=== PATIENT | female | born 1980 | race Caucasian/White ===

== ENCOUNTER 2025-04-07 20:50 | Inpatient (IN) | payer BC, MEDICAID ==
[~2025-04-07] VITALS: Ht 160 cm; Wt 63.5 kg
[2025-04-07 21:14] LABS: MEAN PLATELET VOLUME 8.3 FL (7.4-10.4); RED CELL DISTRIBUTION WIDTH 12.7 % (11.5-14.5)
[2025-04-07 21:27] LABS: CREATININE 0.69 MG/DL (0.40-0.90); TOTAL CARBON DIOXIDE 22.3 MMOL/L (24-32); eGFR > 90 ML/MIN
[2025-04-07 21:28] LABS: APTT 29 SECONDS (22-32); INR 1.0 INR
--- NOTE | 2025-04-07 21:37 | RADIOLOGY REPORT ---
Procedure: CT CT STROKE ALERT [facility] Study Date and Requested Time: 04/07/2025 09:14 PM Common Stroke Alert Comparison: None Dose: CTDI: mGy DLP: mGycm Technique: Multiplanar images obtained through the brain without intravenous contrast. Findings: Normal brain volume and formation. Mild chronic small vessel ischemic changes. No hemorrhages, masses, mass effect, midline shift, herniation. No intra-axial or extra-axial fluid c ollections. Questionable asymmetric hypodensity over the right cerebellum versus artifact. No evidenc e of hydrocephalus. The basal cisterns are patent. The pituitary gland, sella and parasellar regions are unremarkable. The cerebellar tonsils are in nor mal position. The orbits and globes are unremarkable. The paranasal sinuses and mastoids are clear. There are no wo rrisome calvarial lesions. Impression: No evidence of acute intracranial hemorrhage. Questionable asymmetric hypodensity over the right cerebellum versus artifact. MRI be helpful for fur ther evaluation if there is persistent concern for acute infarct. Critical Result: Stroke Alert Findings discussed with Dr. Rm, at 04/07/2025 09:34 PM, and acknowledged receipt and understanding of the findings. ..
--- NOTE | 2025-04-07 22:02 | RADIOLOGY REPORT ---
CHEST RADIOGRAPH Indication: Stroke Alert Technique: Single frontal view of the chest was obtained Comparison: None FINDINGS: Lines and Tubes: None Lungs: No focal consolidation. Pleura: No effusion. No pneumothorax. Cardiomediastinal contours: Unremarkable Bones: No acute osseous abnormality. IMPRESSION: No acute cardiopulmonary disease.
[2025-04-07] MEDS: clopidogrel 300mg tablet PO ONE (23:00)
--- NOTE | 2025-04-07 23:01 | Physician Documentation ---
History of Present Illness ~ Chief Complaint: Stroke Alert Stated Complaint: FACIAL DROOPING Time Seen by MD: 21:34 OK to notify your PCP?: Yes Source: patient, family, RN/MD, RN notes reviewed, old records Mode of Arrival: POV Exam Limitations: no limitations HPI This pleasant female is healthy with no medical complaints. She does have a history of anxiety but does not take medications and does not have a formal diagnosis. Patient states that she woke up and there was an isolated pimple on her right cheek area. She later went to put some mascara over it and noticed that the area felt funny and a bit numb. The day progressed and it was then numb and unable to smile. He was limited to the V to V3 area only. V1 is spared she is able to lift her brow without any difficulty. She denies any headache no fevers chills complications. No recent travel. She takes an IUD but no control ex tobacco smoker she came in today because her symptoms did not resolve. Patient has no history of MS. No vision changes no headache. She is now here for evaluation. Medication Reconciliation Allergies: Coded Allergies: No Known Allergies (Unverified , 02/15/17) Past Medical History Past Medical History: No Pertinent History, Anxiety Past Surgical History: noncontributory Lives In: Home Occupation: employed Review of Systems All Other Systems at this time: Reviewed and Negative Physical Exam Vital Signs: RN Vital Signs have been reviewed: Yes, Temperature: 97.6, Heart Rate: 74, Respiratory Rate: 16, BP: 115/67, Pulse Oximetry: 95, Weight: 63.500 General Appearance General: The patient is well developed, well nourished, nontoxic appearing and is in no acute distress. Skin: [place], warm and dry with no rashes. HEENT: Head was normocephalic and atraumatic. Eyes - pupils equal, round, reactive to light and accommodation. Extraocular movements were intact. Conjunctivae were nonicteric. The mouth and oropharynx were clear with moist mucous membranes. Neck: Supple and nontender. There was no jugular venous distention, lymphadenopathy, thyromegaly or masses. Chest: Clear to auscultation bilaterally without wheezes, rales or rhonchi. No accessory muscle use. No dullness to percussion. Heart: Rate regular and rhythmic. S1, S2. No murmurs. Palpation of the chest wall was normal. No rubs or thrills. Abdomen: Soft, nontender and nondistended. Positive bowel sounds. No guarding or rebound. No hepatosplenomegaly or palpable masses. Extremities: No cyanosis, clubbing or edema. The patient moves all extremities. Pulses were equal and symmetric. Neurologic: V1 full range of motion. Able to lift eyebrows. V2 V3 with facial numbness and facial droop. No tongue deviation no extremity weakness or numbnes s no other neurological findings. Psychologic: The patient was oriented to person, place and time. The patient demonstrated appropriate judgement and insight. Progress Results/Orders Reviewed/noted all lab results: Yes Results/Orders Orders - JUNIOR RM MD Monitor (04/07/25 20:58) 2 Large Bore Ivs (04/07/25 20:58) Electrocardiogram (04/07/25 20:58) Chest,Single View (04/07/25 21:52) Accucheck (04/07/25 20:58) Ct Stroke Alert (04/07/25 20:58) [place] Prov.Neuro Consult (04/07/25 20:58) Completed Orders - JUNIOR RM MD Cbc/Diff (04/07/25 20:58) Chest,Single View (04/07/25 21:52) Ct Stroke Alert (04/07/25 20:58) BMP (04/07/25 20:58) PTT (04/07/25 20:58) Pt Inr (04/07/25 20:58) Vital Signs 04/07/25 04/07/25 04/07/25 21:05 22:16 22:20 Temp 97.6 97.6 Pulse 74 Resp 16 18 16 B/P (MAP) 133/81 115/67 (83) Pulse Ox 97 95 Laboratory Tests Test 04/07/25 21:05 04/07/25 21:07 Glucometer 96 White Blood Count 9.2 Red Blood Count 4.54 Hemoglobin 14.7 Hematocrit 42.0 Mean Corpuscular Volume 92.5 Mean Corpuscular Hemoglobin 32.3 H Mean Corpuscular Hemoglobin Concent 34.9 Red Cell Distribution Width 12.7 Platelet Count 294 Mean Platelet Volume 8.3 Neutrophils (%) (Auto) 57.1 Lymphocytes (%) (Auto) 32.6 Monocytes (%) (Auto) 7.0 Eosinophils (%) (Auto) 2.6 Basophils (%) (Auto) 0.7 Neutrophils # (Auto) 5.2 Lymphocytes # (Auto) 3.0 Monocytes # (Auto) 0.6 Eosinophils # (Auto) 0.2 Basophils # (Auto) 0.1 CBC Comment Prothrombin Time 9.8 INR International Normalized Ratio 1.0 Activated Partial Thromboplast Time 29 Coagulation Comments Sodium Level 138 Potassium Level 3.5 Chloride Level 103 Carbon Dioxide Level 22.3 L Anion Gap 13 Blood Urea Nitrogen 11 Creatinine 0.69 Estimated GFR/1.73 m2 > 90 BUN/Creatinine Ratio 15.9 Glucose Level 93 Calcium Level 9.3 Albumin 4.2 Chemistry Comments Re-Evaluation Re-Evaluation : Re-Evaluation: Improved Progress Patient was seen and examined. Patient is given reassurance. I discussed the case with Neurology. Possible MS was considered since it is so gradual onset seems to be progressing. Patient will need an MRI. Patient received aspirin and Plavix load. Patient however will be admitted and treated for stroke. She has very few risk factors. No recent travel not on any control other than IUD ex tobacco smoking. Patient's laboratory work shows a normal CBC without anemia. Chemistry within normal limits no abnormalities coagulation within normal limits. Cat scan showed a questionable asymmetry in the hypodensity over the right cerebellum versus artifact MRI was recommended. X-ray was also within normal limits. EKG/XRAY/CT/US/VASC/MRI EKG : Intepreting Monitor?: Yes Additional Comment 9:10 p.m. EKG shows normal sinus rhythm heart rate 79, QTC 452, good R-wave progression normal axis intervals. Abdominal X-Ray : Additional Comment CHEST RADIOGRAPH Indication: Stroke Alert Technique: Single frontal view of the chest was obtained Comparison: None FINDINGS: Lines and Tubes: None Lungs: No focal consolidation. Pleura: No effusion. No pneumothorax. Cardiomediastinal contours: Unremarkable Bones: No acute osseous abnormality. IMPRESSION: No acute cardiopulmonary disease. : Interpreted By: radiologist CT: head With Contrast?: No Impression Procedure: [facility] Study Date and Requested Time: 04/07/2025 09:14 PM Common Stroke Alert Comparison: None Dose: CTDI: mGy DLP: mGycm Technique: Multiplanar images obtained through the brain without intravenous contrast. Findings: Normal brain volume and formation. Mild chronic small vessel ischemic changes. No hemorrhages, masses, mass effect, midline shift, herniation. No intra-axial o r extra-axial fluid collections. Questionable asymmetric hypodensity over the right cerebellum versus artifact. No evidence of hydrocephalus. The basal cisterns are patent. The pituitary gland, sella and parasellar regions are unremarkable. The cerebellar tonsils are in normal position. The orbits and globes are unremarkable. The paranasal sinuses and mastoids are clear. There are no worrisome calvarial lesions. Impression: No evidence of acute intracranial hemorrhage. Questionable asymmetric hypodensity over the right cerebellum versus artifact. MRI be helpful for further evaluation if there is persistent concern for acute i nfarct. Critical Result: Stroke Alert Findings discussed with Dr. Rm, at 04/07/2025 09:34 PM, and acknowledged receipt and understanding of the findings. .. Medical Decision Making Additional info obtained from: old records Differential Dx:Considerations: Include: Willson's Palsey, CVA, Delirium tremens, DKA, Drug overdose, Electrolyte imbalance, Encephalopathy, Hypoxemia, Hypoglycem ia, Mass lesion, Respiratory failure, Subarachnoid Hemorrhage, TIA, Other Departure Admitted to Inpatient Unit: yes, to hospitalist Admission Level of Care: Neuro Impression: Primary Impression: Cerebral infarction Qualified Codes: I63.9 - Cerebral infarction, unspecified Condition: Guarded Referrals: NO PRIMARY CARE PROVIDER (PCP) Education Educated: Patient, Family Educated regarding: diagnosis, treatment, need for follow up, other Critical Care Note Total Time (mins): 33 Critical Care Note The very real possibility of a deterioration of this patient's condition required the highest level of my preparedness for sudden, emergent intervention. I provided critical care services, which included medication orders, frequent reevaluations of the patient's condition and response to treatment, ordering and reviewing test results, and discussing the case with various consultants. Excludes time spent performing separately billable procedures. The critical care time associated with the care of the patient was. 33 minutes Signature Scribe Signature: x Attestation: JUNIOR Saldivar MD Apr 07, 2025 23:01
--- NOTE | 2025-04-07 23:23 | [facility] CONSULT REPORT ---
[facility] Procedure Note [facility] Procedure Note Consult [facility] Note # Demographics Consult Type: Acute Stroke Level 2 (4.5-24 hrs) Patient Location: Emergency Room First Name: KEELEY Last Name: RADHA Date of : 1980 Age: 44 Gender: Female Facility: [facility] Time of Initial Page (): 04/07/2025 22:59 First Contact with Site (): 04/07/2025 23:00 # HPI Chief Complaint: Facial droop History: 44 yo F p/w R facial droop and numbness after she woke up this morning. She also reported having difficulties opening her R eye. Recent viral symptoms. Last Known Normal: - I have collected independent history specific to time last normal or last known well. We have collaborated with the provider and at this time, we have the most current timeline with the information that is available. Last night # Scores Time of exam and NIHSS (): 04/07/2025 23:08 Level of Consciousness 1a: [0] = Alert; keenly responsive LOC Questions 1b: [0] = Answers both questions correctly LOC Commands 1c: [0] = Performs both tasks correctly Best Gaze 2: [0] = Normal Visual 3: [0] = No visual loss Facial Palsy 4: [1] = Minor paralysis Motor Arm Left 5a: [0] = No drift Motor Arm Right 5b: [0] = No drift Motor Leg Left 6a: [0] = No drift Motor Leg Right 6b: [0] = No drift Limb Ataxia 7: [0] = Absent Sensory 8: [0] = Normal Best Language 9: [0] = No aphasia Dysarthria 10: [0] = Normal Extinction and Inattention 11: [0] = No abnormality NIHSS Total: 1 # Data Head CT: - per radiologist read, questionable R cerebellar hypodensity vs artifact - no bleed # Assessment Impression: - [place] Palsy Differential Diagnosis: - Ischemic Stroke (Acute) # Plan Thrombolytic/Intervention: NOT IV Thrombolysis or IA Intervention candidate Thrombolytic Exclusion: > 4.5 hours Intraarterial Exclusion: - clinical exam not consistent with presence of large vessel occlusion (LVO), can reconsider if LVO found on vascular imaging Imaging: (urgency: routine): - MRI Brain without contrast Medication: If MRI is negative, can discontinue ASA and Plavix, and start Prednisone taper Other: - If patient has any neurological deterioration please call me back immediately - would not pursue stroke work-up if MRI is negative - I have discussed my recommendations with the referring provider # Logistics Attestation of consult completion: The patient is located at: [facility]. Facility staff participated in the visit. I performed this telemedicine visit from my offsite office utilizing interactive 2 way audio and visual telecommunication technology at the request of the onsite emergency room provider. Total time spent in telemedicine encounter: I spent 21 minutes reviewing clinical data and/or imaging, obtaining history, examining the patient, communicating with the onsite care team, and in preparation of this report. # Demographics First Name: KEELEY Last Name: RADHA Facility: [facility] Electronically signed at 04/07/2025 23:21 ([place] Time) by Julianna Santana MD Neuro Consult Order placed for: Yes JULIANNA SANTANA MD Apr 07, 2025 23:23
[2025-04-07] MEDS: normal saline 1000ml 1,000 ML IV SCH (23:59)
[2025-04-08] MEDS ORDERED: magnesium sulf-water 2g/50mL 50 ML IV PRN (00:05)
[2025-04-08] MEDS ORDERED: potassium Cl 20 mEq SR tablet PO PRN (00:05)
[2025-04-08] MEDS ORDERED: mag hydrox/Alum hydrox/simeth 30ml oral suspension PO PRN (00:05)
[2025-04-08] MEDS ORDERED: ondansetron/PF 4mg/2ml inj IV PRN (00:05)
[2025-04-08] MEDS ORDERED: normal saline 1000ml 1,000 ML IV SCH (00:05)
[2025-04-08] MEDS ORDERED: magnesium Cl slow-release 64mg tablet PO PRN (00:05)
[2025-04-08] MEDS ORDERED: magnesium sulf-water 4G/100mL 100 ML IV PRN (00:05)
[2025-04-08] MEDS ORDERED: magnesium hydroxide 30ml (MOM) UD suspension PO PRN (00:05)
[2025-04-08] MEDS ORDERED: potassium Cl 40MEQ/1/2NS 520ml 520 ML IV PRN (00:05)
--- NOTE | 2025-04-08 00:30 | HISTORY AND PHYSICAL-Residence ---
History & Physical Providers to Resident Creating Document: FIDEL CAMERON, ESTRELLA ~ History of Present Illness Reason for Admit\Complaint: Right-sided facial droop History of Present Illness 44-year-old female with past medical history of migraines(in childhood) presented to the ED with chief complaint of right-sided facial drooping and numbness that started in the morning today. The patient reported that she noticed acne on the right side of her face one day ago and wanted to cover it with a make a prior to going to work. When she woke up in the morning to cover the acne with a make up she felt mild numbness and mild right-sided facial asymmetry due to weakness. She reports that her sudden facial numbness and weakness has a progressively worsened throughout the day and the asymmetry when she smiles has a become significantly worse and this prompted her to come to the hospital later in the evening. The patient denied any recent travel history, fever, chills. She denies any insect bite, camping, contact with sick people. She denies being on any oral contraceptive pill and is currently on IUDs. She reports that she has had a severe headache two weeks ago for that lasted for two days and was localized in back side of her head on the right side. She currently denies any other concerns or complaints. Allergies: Coded Allergies: No Known Allergies (Unverified , 02/15/17) Past Medical History Past Medical History Migraines when she was a child [age] Past Surgical History Surgical History Comment Appendectomy Past Social History Social History Comment Works in [employer] for [employer] Quit smoking four years ago Very occasionally drinks cocktails Denies recreational drug use Lives In: Home Occupation: employed ROS All Other Systems: Reviewed and Negative ROS CONSTITUTIONAL: No fever. No chills. No dizziness. No weakness, No weight gain or Loss. EYES: No pain, erythema, or discharge. No blurring of vision. ENT: No sore throat, No epistaxis. No tinnitus. CARDIOVASCULAR: No chest pain, chest pressure, chest discomfort. no palpitations or syncope. No lower extremity edema. No paroxysmal nocturnal dyspnea. RESPIRATORY: No shortness of breath, No cough, No hemoptysis. No dyspnea. GASTROINTESTINAL: Normal appetite. No nausea, vomiting, diarrhea. No constipation. No hematemesis. No abdominal pain. No bloating. No melena or fresh blood. GENITOURINARY: No frequency, urgency, nocturia. No hematuria or dysuria. MUSCULOSKELETAL: Bilateral numbness after she sleeps which improves with the moment. No other arthralgias or myalgias. INTEGUMENTARY: no change in skin, hair, nails. No swelling. No bruising. No abrasions. NEUROLOGIC: Headache and neurological manifestations has been mentioned in the HPI. Occasional dizziness which is positional that has been going on since the past few months. PSYCHIATRIC: no delusions, no depression, no loss of interest in normal activity or change in sleep pattern, no hallucinations or suicidal ideations ENDOCRINE: No fatigue. No weakness. No polydipsia, polyuria, no change in appetite. no heat or cold intolerance, no emmanuel, no dry skin. HEMATOLOGICAL: No bleeding. No petechiae. No bruising. ALLERGIES: No asthma. No urticaria. Exam Vitals: Vital Signs Date Time Temp Pulse Resp B/P (MAP) Pulse Ox O2 Delivery O2 Flow Rate FiO2 04/07/25 23:38 68 18 133/86 97 04/07/25 23:37 97.6 General: General: Awake and Alert, no acute distress. HEENT: Conjunctiva pink, Sclera clear, Mucus Membranes moist. Neck: Supple without masses and tenderness. Resp: Unlabored. Lungs clear to auscultation bilaterally. Heart: Regular Rate and rhythm, normal S1 and S2 without murmur, rub or gallop. Abdomen: Soft and non tender no organomegaly Extremities: No cyanosis,clubbing or edema. Skin: Warm and Dry. Neurology: Oriented to time place and person. Right-sided facial droop present. Patient able to raise her eyebrows and close the right needs tightly. Mild sensory deficit in the right V2 V3 areas. No sensory deficits noted in the peripheries. No motor noted in all four extremities. Babinski sign negative. Musculoskeletal: No restricted range of motion. No deformities. Diagnostic Data Last Recorded Lab Results: 04/07/25210604/08/25 0252 Diagnostic Data: Laboratory Tests Test 04/07/25 21:07 Prothrombin Time 9.8 SECONDS (9.0-12.0) INR International Normalized Ratio 1.0 INR Activated Partial Thromboplast Time 29 SECONDS (22-32) Coagulation Comments Advance Care Planning Advanced Care planning: Add on additional 30 min Additional Plan Right-sided facial palsy Willson's palsy versus acute ischemic stroke CT scan of the head showed a questionable asymmetric hypodensity over the right cerebellum versus infarct. Recommended MRI for further evaluation. The tele neurologist were consulted. Per the tele neurologist the patient need further evaluation with an MRI and continue treatment with the aspirin and Plavix. They also recommend treating for Willson's palsy. The patient received a loading dose of aspirin, Plavix. Continue aspirin 81 mg p.o. daily and Plavix 75 mg p.o. daily. The patient received one dose of IV methylprednisolone. Started the patient on p.o. prednisolone 60 mg daily. Atorvastatin 40 mg p.o. daily. Follow up with lipid panel. Per tele neurologist Dr. Sevilla if the patient's MRI is negative we can treat the patient with a prednisolone taper and stop aspirin and Plavix. Follow up with the A1c. Urine analysis and urine tox to be done. Close monitoring all patient's vitals. Continue supportive care and management. Continue telemetry monitoring for 24 hours to check for any underlying cardiac arrhythmias. Echocardiography to be done. PT eval and treat. CODE STATUS: Full code DVT prophylaxis: Heparin 5000 units subQ b.i.d. GI prophylaxis: None Diet: NPO until bedside swallow. Regular diet.. Disposition: Awaiting MRI of the head without contrast. Continue to monitor the patient closely and anticipate discharge home in the next 24-48 hours. Fidel Cameron MD Internal Medicine Resident, PGY-3 Addendum I personally reviewed the chart, labs and imaging and reviewed the patient with the team. I agree with the assessment and plan as documented by the resident. Patient was seen through remote audio-visual assessment through HIPAA compliance setup. Date of Service: Apr 08, 2025 Billing Provider: IRON MOHAN MD, SURYA PRATIK, ESTRELLA Apr 08, 2025 00:30 IRON MOHAN MD Apr 08, 2025 21:36
[2025-04-08 00:53] LABS: PHOSPHORUS 3.1 MG/DL (2.3-4.5)
[2025-04-08] MEDS: normal saline 1000ml 1,000 ML IV SCH (04:00)
[2025-04-08 06:15] LABS: LEUKOCYTE ESTERASE ,URINE NEGATIVE (Neg); NITRITES, URINE NEGATIVE (Neg); OCCULT BLOOD,URINE TRACE-INTACT (Neg)
[2025-04-08 06:25] LABS: UA COLLECTION TYPE CLN CATCH MIDSTREAM
[2025-04-08 06:26] LABS: MUCUS STRANDS NONE SEEN /LPF (Neg); SQUAMOUS EPITHELIAL CELL,UR MANY /LPF (FEW)
[2025-04-08 06:56] LABS: URINE AMPHETAMINE SCREEN NEGATIVE (Neg); URINE BARBITUATE SCREEN NEGATIVE (Neg); URINE BENZODIAZEPINES SCREEN NEGATIVE (Neg); URINE CANNABINOID SCREEN NEGATIVE (Neg); URINE COCAINE SCREEN NEGATIVE (Neg); URINE METHADONE SCREEN NEGATIVE (Neg); URINE OPIATE SCREEN NEGATIVE (Neg); URINE PHENCYCLIDINE SCREEN NEGATIVE (Neg)
[2025-04-08] MEDS: docusate sod 100mg capsule PO SCH (06:58)
[2025-04-08] MEDS: K and/or MAG REPLACEMENT MC SCH (06:58)
--- NOTE | 2025-04-08 07:47 | RADIOLOGY REPORT ---
PROCEDURE: MRI OF THE BRAIN WITHOUT CONTRAST. CLINICAL INDICATION: Rule out ischemic stroke TECHNIQUE: Multiplanar, multi sequence MRI of the brain was performed without intravenous contrast. COMPARISON: None FINDINGS: The signal characteristics of the brain parenchyma is within normal limits. There are no areas of res tricted diffusion to suggest acute infarct. No evidence of space occupying mass lesion, extra-axial c ollections or hemorrhage is noted. The ventricles, sulci and basal cisterns are intact. There is no s ignal abnormality in the posterior fossa. The paranasal sinuses and mastoid air cells are well pneumatized. The orbits and nasopharynx are inta ct. The osseous structures are intact. The vessels of the skull base demonstrate signal void consistent with patency. IMPRESSION: 1. No acute intracranial abnormality.
[2025-04-08] MEDS: aspirin 81mg, enteric-coated 1 TAB TABLET.DR PO SCH (07:51)
[2025-04-08] MEDS: heparin, porcine 5000 units/ml vial SQ SCH (07:52)
[2025-04-08] MEDS ORDERED: NO HOME MEDS (12:01)
[2025-04-08 18:00] VITALS: BP 111/61; PULSE 79; RESP 14; TEMP 98.2; O2SAT 84
--- NOTE | 2025-04-08 18:11 | PROGRESS NOTE ---
Daily Progress Note Providers to CC ~ Antibiotic Timeout Antibiotic Ordered?: No Subjective No new complaints. Patient states that her numbness is still there but her nasolabial fold flattening has significantly improved. Patient showed me pictures on her phone. Objective Vital Signs Date Time Temp Pulse Resp B/P (MAP) Pulse Ox O2 Delivery O2 Flow Rate FiO2 04/08/25 13:55 0.0 04/08/25 12:44 73 04/08/25 11:17 97.5 18 106/85 (92) 98 Result Diagram: 04/07/25210604/08/25 0255 Gen. awake alert oriented asymptomatic HEENT: Normocephalic, atraumatic, pupils round reactive to light and accommodation, extraocular movements are intact, sclera anicteric, conjunctiva pinkish, moist oral mucosa, no rash or ulcers. NECK: Supple, no JVD, trachea midline. CHEST: Clear to auscultation, no wheezes crackles or rhonchi. HEART: Regular rate rhythm, no murmur gallop or rub. ABDOMEN: Soft, nontender, no organomegaly. EXTREMITIES: No cyanosis clubbing or edema. NEURO EXAM: Grossly nonfocal. Very mild right nasolabial fold flattening. No paralysis of the forehead muscles. No speech impairment. No motor abnormality. MUSCULOSKELETAL : No joint swelling or deformities. SKIN: No rash or ulcers noted. Coagulation Studies Laboratory Tests Test 04/07/25 21:07 Prothrombin Time 9.8 SECONDS (9.0-12.0) INR International Normalized Ratio 1.0 INR Activated Partial Thromboplast Time 29 SECONDS (22-32) Coagulation Comments Other Results Medications reviewed Problem\Assessment\Plan 44 years old female presented to the ER for evaluation of right nasolabial fold flattening. 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 Patient has been started on prednisone. She is also on Plavix and aspirin. We will discuss further with Neurology Service whether she does need to be on dual antiplatelet therapy. Await echocardiogram 2. Code status: Full code Date of Service: Apr 08, 2025 Billing Provider: COCO SMITH MD Common Visit Codes: [id number] INP/OBS CARE(HIGH) COCO SMITH MD Apr 08, 2025 18:11
--- NOTE | 2025-04-08 19:06 | CARDIOLOGY REPORT ---
APPROVED REPORT EXAM: Comprehensive 2D, Doppler, and color-flow Echocardiogram. 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 152.4 cm/s AoV VTI 32.4 cm AO Peak GR. 9.3 mmHg AO Mean GR. 5 mmHg LVOT VTI 26.34 cm LVOT Peak Davonte. 112.0 cm/s JOVANI(VTI)/BSA 2.56 cm2/m2 JOVANI (VTI) 2.56 cm2 Mitral Valve MV E Velocity 98.4 cm/s MV Peak Gr. 5 mmHg MV DECEL TIME 172 ms MV A Velocity 68.8 cm/s MV PHT 76 ms E/A Ratio 1.4 MVA (PHT) 2.89 cm2 MV AHzl057.6 cm/s TDI Lateral E' P. V17.01 cm/s Medial E' P. V 11.92 cm/s E/Lateral E' 5.8 E/Medial E' 8.3 Pulmonary Valve PAEDP11.12 mmHg Tricuspid Valve TR P. Velocity 174 cm/s RAP ESTIMATE 10 mmHg TR Peak Gr. 12 mmHg RVSP 22 mmHg LEFT VENTRICLE Normal LV size and wall thickness. Overall systolic function is normal. Overall LVEF is 65-70%. RIGHT VENTRICLE Right ventricle is mildly dilated with adequate function. ATRIA The left atrium size is normal. AORTIC VALVE Trileaflet AV appears mildly sclerotic without stenosis. No insufficiency. MITRAL VALVE Mitral valve leaflets are mildly thickened with mild annular calcification. No stenosis. Trace regurg itation TRICUSPID VALVE The tricuspid valve is normal in structure with trace regurgitation. PULMONIC VALVE The pulmonary valve is normal in structure with physiologic insufficiency. GREAT VESSELS The aortic root is normal in size. The IVC is normal in size and collapses >50% with inspiration. PERICARDIUM Normal pericardium. No effusion. Other Information Study Quality: Adequate Conclusion Overall LVEF is 65-70%. Normal LV size and wall thickness. Overall systolic function is normal. Right ventricle is mildly dilated with adequate function. Trileaflet AV appears mildly sclerotic without stenosis. No insufficiency. Mitral valve leaflets are mildly thickened with mild annular calcification. No stenosis. Trace regu rgitation The tricuspid valve is normal in structure with trace regurgitation. The pulmonary valve is normal in structure with physiologic insufficiency. Normal pericardium. No effusion.
[2025-04-08 22:00] VITALS: BP 102/53; PULSE 75; RESP 18; TEMP 98.2; O2SAT 98
[2025-04-09 05:23] VITALS: BP_SYST 100; BP_SYST 102; BP_SYST 109; BP_DIAS 59; BP_DIAS 62; BP_DIAS 70; PULSE 59; PULSE 68; PULSE 70
[2025-04-09 06:00] VITALS: BP 100/59; PULSE 59; RESP 14; TEMP 98; O2SAT 96
[2025-04-09 06:50] LABS: MEAN PLATELET VOLUME 8.7 FL (7.4-10.4); RED CELL DISTRIBUTION WIDTH 12.9 % (11.5-14.5)
[2025-04-09 07:04] LABS: CHOL/HDL RATIO 3.1 (0.00-4.99); CREATININE 0.77 MG/DL (0.40-0.90); LDL CHOLESTEROL 84 MG/DL (50-100); TOTAL CARBON DIOXIDE 21.3 MMOL/L (24-32); eCRCL 77 ML/MIN; eGFR 81 ML/MIN
[2025-04-09] MEDS: potassium Cl 20 mEq SR tablet PO PRN (07:53)
[2025-04-09 10:00] VITALS: BP 109/68; PULSE 66; RESP 12; TEMP 97.2; O2SAT 97
--- NOTE | 2025-04-09 11:16 | ELECTROCARDIOGRAPH REPORT ---
[facility] Test Date: 2025-04-07 Test Time: 21:11:01 Pat Name: KEELEY GARCIA Department: EMERGENCY ROOM Room: [place] [address] A Gender: F Drill Rig Operator: GERSON : 1980 Requested By: DEPARTMENT EMERGENCY Order Number: [id number] Reading MD: Measurements Intervals [place] Rate: 79 P: 38 FL: 156 QRS: 28 QRSD: 99 T: 29 QT: 394 QTc: 452 Interpretive Statements Sinus rhythm Borderline T abnormalities, anterior leads Baseline wander in lead(s) V2 Please click the below link to view image of tracing.
[2025-04-09] MEDS ORDERED: PANT-47 PO (13:17)
[2025-04-09] MEDS ORDERED: ASPI-1071 PO (13:17)
[2025-04-09] MEDS ORDERED: PRED10TA PO (13:17)
--- NOTE | 2025-04-09 15:44 | DISCHARGE SUMMARY ---
Discharge Summary Providers to CC ~ Discharge Summary Admission Diagnosis: BElls palsy vs Acute ischemic stroke Hospital Course DATE OF ADMISSION: DATE OF DISCHARGE:04/09/2025 Condition on DC: Stable COCO SMITH MD Apr 09, 2025 15:44
== END 2025-04-09 14:30 | disposition home or self-care (01) | DRG 74 ==
LOC: ER 20:51 → ED HOLD 23:36 → ORTHO 4S 04-08 11:38
PROVIDERS: ADMIT Internal Medicine Sleep Medicine; ATTEND Internal Medicine
DX: G51.0 Bell's palsy (principal); Z87.891 Personal history of nicotine dependence
CPT/HCPCS: 36415; 70450; 70551; 71045; 80048; 80053; 80061; 80305; 81001; 82948; 83036; 83735; 84100; 84132; 84443; 85025; 85610; 85651; 85730; 87081; 93005; 93306; 96374; 97110; 97116; 97161; 99291; G0378; J1644; J2919; J7030; J7120; J7512